=== PATIENT | male | born 1940 | race Caucasian/White ===

== ENCOUNTER 2018-08-07 09:41 | Inpatient (IN) | payer OTHER ==
[~2018-08-07] VITALS: Ht 175.3 cm; Wt 90.3 kg
[2018-08-07] VITALS (7 sets, daily range): BP systolic 105–135; BP diastolic 49–62
[~2018-08-07 09:41] MED LIST: 8 HOUR650 MG PO; APAP650 PO; ASPIR 8181 MG PO; BACTRIM DS TAB1 EACH PO; COLACE100 MG PO; DILANTIN100 MG PO; FISH OIL 1,001000 M2 PO; HYDROCODONE-APA1 TA1 PO; LEXAPRO 10 MG T10 M1 PO; MOBIC15 MG PO; NORCO 5-325 TA1 EACH PO; PRED FORTE 1% EY5 M1 OPHTHALMIC; PREDNISONE 1 MG1 M1 OPHTHALMIC; VOLTAREN GEL 1100 G2 TOP; XARELTO10 MG PO; ZOCOR20 MG PO
[2018-08-07 09:58] LABS: ABSOLUTE NEUTROPHILS 7.8 thou/uL (1.4-8.2); BASOPHILS 0.4 % (0.0-2.0); EOSINOPHILS 3.1 % (0.0-3.0); HEMATOCRIT 45.7 % (42.0-52.0); HEMOGLOBIN 14.9 gm/dL (14.0-18.0); MCH 31.2 pg (26.0-34.0); MCHC 32.6 g/dL (28.0-37.0); MCV 95.8 fL (80.0-100.0); MONOCYTES 5.6 % (1.0-8.0); PLATELET COUNT 299 thou/uL (150-400); POLYS 79.9 % (36.0-66.0); RBC 4.77 mil/uL (4.50-6.00); RDW 13.6 % (10.5-14.5); WBC 9.8 thou/uL (4.0-11.0)
[2018-08-07 10:06] LABS: ANION GAP 12 mmol/L (7-16); BUN 10 mg/dL (7-18); CALCIUM 9.6 mg/dL (8.5-10.1); CHLORIDE 99 mmol/L (98-107); CO2 27 mmol/L (21-32); GLUCOSE 163 mg/dL (74-106); SODIUM 138 mmol/L (136-145)
[2018-08-07 10:14] LABS: ALBUMIN 3.5 g/dL (3.4-5.0); SGOT 42 U/L (15-37); SGPT 23 U/L (30-65); TOTAL BILIRUBIN 0.4 mg/dL (<0.1-1.0); TOTAL PROTEIN 8.8 g/dL (6.4-8.2); TROPONIN-I <0.06 ng/mL (<0.06)
[2018-08-07] MEDS ORDERED: IBUPROFEN 200200 M1 PO (10:59)
[2018-08-07] MEDS ORDERED: TOPROL XL25 MG PO (10:59)
[2018-08-07] MEDS ORDERED: LIPITOR 20 MG T20 M1 PO (10:59)
--- NOTE | 2018-08-07 13:06 | EKG ---
[address] [address] ELECTROCARDIOGRAM REPORT Name: LISA OSWALD Room #: 170-17 ADM IN .R.#: [id number] ������������������ Admission: 08/07/18 ������������������ Attend Phys: Slade Alberto MD Discharge: ������������������ Date of : 36 Report #: [id number] ����������������������������������������������������������������� [id number] THIS REPORT FOR: //name// [facility] ED Test Date: 2018-08-07 Test Time: 09:47:36 Pat Name: LISA SHEAGLENNSANDIE Department: Room: [facility] Gender: M Food Beverage Supervisor: TATIANNA[]] : 1940 Requested By: Jamila Alanis Order Number: [id number] MD: Flavio Richard Measurements Intervals [place] Rate: 84 P: 76 [place]: 158 QRS: 60 QRSD: 97 T: -48 QT: 310 QTc: 367 Interpretive Statements Sinus rhythm Ventricular premature complex left atrial enlargement Nonspecific ST-T wave abnormalities Compared to ECG 04/26/2015 16:11:49 Ventricular premature complex(es) now present Electronically Signed On 08-07-2018 13:06:08 CREDIT RISK MODELER by Flavio Richard [email or web address] ��������������������������������������������� <ELECTRONICALLY SIGNED> ���������������������������������������� By: Flavio Richard MD ��������������������������������������������� 08/07/18 1306 0947 0947 Flavio Richard MD /EPI
--- NOTE | 2018-08-07 15:33 | 2DMMODE ---
[facility] [place] [address] 2 D/M-MODE ECHOCARDIOGRAM Name: DAREKLISA S Room #: 250-P ADM IN M.R.#: [id number] ������������� Admission: 08/07/18 ������������� Attend Phys: Slade Alberto, Discharge: ��� ������������� ��� Date of : 36 Date of Service: 08/07/18 1533 �� Report #: [id number] �������� ��������������������������������������������[id number] THIS REPORT FOR: //name// APPROVED REPORT Study performed: 08/07/2018 14:26:21 EXAM: Comprehensive 2D, Doppler, and color-flow Echocardiogram Patient Location: ICU Room #: 250 Status: routine BSA: 2.04 HR: 83 bpm BP: 130/62 mmHg Rhythm: NSR Other Information Study Quality: Adequate/low window. Technically limited study due to COPD, coughing. Indications Dyspnea, elevated BNP. Hx: CABG. COPD, HTN, HLP. 2D Dimensions IVSd: 10.30 (7-11mm) LVOT Diam: 20.84 (18-24mm) LVDd: 50.33 mm PWd: 10.01 (7-11mm) LVDs: 32.11 (25-40mm) Aortic Root: 35.44 mm Volumes Left Atrial Volume (Systole) Single Plane 4CH: 62.76 mL Single Plane 2CH: 61.02 mL LA ESV Index: 34.00 mL/m2 Aortic Valve AoV Peak Ruben.: 1.96 m/s AO Peak Gr.: 15.35 mmHg LVOT Max P.56 mmHg AO Mean Gr.: 8.44 mmHg AO V2 Mean: 1.38 m/s LVOT Max V: 1.18 m/s AO V2 VTI: 37.78 cm JACKSON Vmax: 2.05 cm2 Mitral Valve [facility] [address] [place] [address] 2 D/M-MODE ECHOCARDIOGRAM Name: LISA OSWALD Room #: [facility] IN .R.#: [id number] ������������� Admission: 08/07/18 ������������� Attend Phys: Slade Alberto, Discharge: ��� ������������� ��� Date of : 36 Date of Service: 08/07/18 1533 �� Report #: [id number] �������� ��������������������������������������������[id number] E/A Ratio: 1.3 MV Decel. Time: 231.89 ms MV E Max Ruben.: 1.20 m/s MV A Ruben.: 0.96 m/s MV PHT: 67.25 ms IVRT: 51.90 ms Pulmonary Valve PV Peak Ruben.: 0.77 m/s PV Peak Gr.: 2.36 mmHg Pulmonary Vein P Vein S: 0.71 m/s P Vein D: 0.58 m/s P Vein S/D Ratio: 1.22 Tricuspid Valve TR Peak Ruben.: 2.97 m/s RAP Estimate: 10.00 mmHg TR Peak Gr.: 35.35 mmHg PA Pressure: 45.00 mmHg Left Ventricle The left ventricle is normal size. Hypokinesis of the mid to basal inferior wall. There is normal left ventricular wall thickness. Left ventricular systolic function is normal. LVEF is 55-60%. Moderate diastolic dysfunction is present (pseudonormal filling). Right Ventricle Right ventricle is not well visualized. Atria Left atrium is at the upper limits of normal. Right atrium is mildly dilated. Aortic Valve The Aortic valve is sclerotic. No aortic regurgitation is present. There is no aortic valvular stenosis. Mitral Valve The mitral valve is normal in structure. There is mitral annular calcification. Moderate mitral regurgitation Tricuspid Valve The tricuspid valve is normal in structure. Moderate tricuspid regurgitation. Estimated PAP is 45mmHg. Pulmonic Valve [address] [address] 2 D/M-MODE ECHOCARDIOGRAM Name: KHRIS OSWALDH Kayla Room #: 250-P [facility]#: [id number] ������������� Admission: 08/07/18 ������������� Attend Phys: Slade Alberto, Discharge: ��� ������������� ��� Date of : 36 Date of Service: 08/07/18 1533 �� Report #: [id number] �������� ��������������������������������������������[id number] Pulmonic valve is not well visualized. Great Vessels The aortic root is normal in size. Ascending aorta is not well visualized. IVC is dilated and collapses >50% with inspiration. Pericardium There is no pericardial effusion. <Conclusion> The left ventricle is normal size. Left ventricular systolic function is normal. Hypokinesis of the mid to basal inferior wall. Moderate diastolic dysfunction is present (pseudonormal filling). Right ventricle is not well visualized. Left atrium is at the upper limits of normal. Right atrium is mildly dilated. The Aortic valve is sclerotic. There is mitral annular calcification. Moderate mitral regurgitation Moderate tricuspid regurgitation. Estimated PAP is 45mmHg. ��������������������������������������������� <ELECTRONICALLY SIGNED> ���������������������������������������� By: Mitch Wyatt MD ��������������������������������������������� 08/07/18 1533 1533 1533 Mitch Wyatt MD /INF
[2018-08-08 02:06] LABS: GLYCOHEMOGLOBIN (HGB A1C) 5.7 % (4.8-5.6)
--- NOTE | 2018-08-08 04:54 | NUR ---
PT IS IMPROVING WITH STERIODS AND PRN BREATHING TX. PT IS ON 2L 02 AND IS GOOD SATURATION. ASSESSMENT CHARTED. MS OVERFLOW STATUS. CALL LIGHT IN REACH. CONTINUE WITH PLAN OF CARE.
[2018-08-08 05:07] VITALS: BP 121/37
[2018-08-08 05:13] LABS: ABSOLUTE NEUTROPHILS 10.2 thou/uL (1.4-8.2); BASOPHILS 0.3 % (0.0-2.0); EOSINOPHILS 0.8 % (0.0-3.0); HEMATOCRIT 38.2 % (42.0-52.0); LYMPHOCYTES 8.7 % (24.0-44.0); MCH 31.5 pg (26.0-34.0); MCHC 33.6 g/dL (28.0-37.0); MCV 93.8 fL (80.0-100.0); PLATELET COUNT 271 thou/uL (150-400); POLYS 85.2 % (36.0-66.0); RBC 4.07 mil/uL (4.50-6.00); RDW 13.6 % (10.5-14.5)
[2018-08-08 05:19] LABS: HEMOGLOBIN 12.8 gm/dL (14.0-18.0)
[2018-08-08 05:26] LABS: CALCIUM 8.7 mg/dL (8.5-10.1); CREATININE 0.9 mg/dL (0.7-1.3); MAGNESIUM 2.2 mg/dL (1.8-2.4); POTASSIUM 4.6 mmol/L (3.5-5.1)
[2018-08-08 08:00] VITALS: BP 101/51
--- NOTE | 2018-08-08 12:58 | NUR ---
INITIAL ASSESSMENT: SW reviewed chart and spoke with nursing and attending physician. Pt was admitted from home due to pneumonia. Pt has been on 2L O2. SW met with pt at bedside. Introduced role of SW. Pt is alert/orienated x 4. Pt reports he lives at home with his . Prior to admission, pt was independent with ADLs. Pt uses a cane to assist with ambulation. No hx of HH services or SNF/Rehab placement. Pt states that his has used [facility] in the past for HH, and he would be agreeable with using [facility] if needed. Pt's PCP is Dr. Puma Dodge. Pt states he wants to establish care with pulmonology and cardiology at [facility]. SW to provide pt with provider booklet. Awaiting therapy evals at this time. SW notified intake at [facility] of possible new HH referral. SW is following to assist as needed with discharge planning.
[2018-08-08 16:00] VITALS: BP 110/62
--- NOTE | 2018-08-08 18:44 | NUR ---
patient remains A&O x 4, pleasant and cooperative with cares. C/O PAIN THROUGHOUT THE DAY, WITH LITTLE HELP FROM NARCODICS. PATIENT HAS CHRONIC PAIN. UP TO CHAIR FOR APPROX 2 HOURS THIS SHIFT, PATIENT IS ABLE TO TRANSFER TO WHEELCHAIR FROM BED AND BED TO WHEELCHAIR WITH MOD ASSISTANCE. DRESSING TO BACK AND SACRAL WOUNDS WERE CHANGED TODAY BY WOUND NURSE THIS SHIFT. PATIENT HAS ADEQUATE OUTPUT WITH GOOD ORAL INTAKE. SUPRAPUBIC CATH CONTINUES TO LEAK AT THIS POINT, PATIENT KEEPS IT CLEAN. NO OTHER CONCERNS AT THIS TIME. WILL CONTINUE TO MONITOR AND CARE PER PLAN OF CARE.
--- NOTE | 2018-08-08 18:50 | NUR ---
UNEVENTFUL DAY, PATIENT BATHED HIMSELF. PATIENT STATES THAT HE FEELS A LOT BETTER. PATIENT TRANSFERRED TO 223. NO OTHER CONCERNS AT THIS TIME. WILL CONTINUE TO MONITOR AND CARE PER PLAN OF CARE.
--- NOTE | 2018-08-08 19:33 | NUR ---
PATIENT TRANSFERRED FROM ICU, UP WITH SBA. ARRIVED AT 1845. ALERT AND ORIENTED X 4. REPORT TAKEN BY [place]/RN. SHE WILL REPORT OFF TO [facility]/RN.
[2018-08-08 20:12] VITALS: BP 121/52
--- NOTE | 2018-08-09 07:23 | NUR ---
PATIENT ALERT AND ORIENTED X4. DENIES PAIN. BREATH SOUNDS DIMINISHED. UP IN ROOM WITH WALKER. SLEPT MOST OF NIGHT.
[2018-08-09 07:45] VITALS: BP 110/53
--- NOTE | 2018-08-09 10:40 | NUR ---
SW reviewed chart and spoke with nursing. Pt was transferred to [facility] ICU and is progressing toward goals for discharge. Plan is for pt to discharge home when medically stable. [facility] is following to assist as needed with discharge planning.
[2018-08-09 11:19] LABS: HEMATOCRIT 40.9 % (42.0-52.0); HEMOGLOBIN 13.6 gm/dL (14.0-18.0); MCH 31.7 pg (26.0-34.0); MCHC 33.2 g/dL (28.0-37.0); MCV 95.6 fL (80.0-100.0); RBC 4.28 mil/uL (4.50-6.00); RDW 13.8 % (10.5-14.5); WBC 10.5 thou/uL (4.0-11.0)
[2018-08-09 11:29] LABS: CALCIUM 8.8 mg/dL (8.5-10.1); MAGNESIUM 2.2 mg/dL (1.8-2.4); POTASSIUM 4.2 mmol/L (3.5-5.1)
[2018-08-09 12:28] VITALS: BP 110/53
[2018-08-09] MEDS ORDERED: AZITHROMYCIN 2250 MG PO (13:38)
[2018-08-09] MEDS ORDERED: PREDNISONE 10 M10 M1 PO (13:38)
[2018-08-09] MEDS ORDERED: CEFPODOXIME PR200 M1 PO (13:38)
[2018-08-09] MEDS ORDERED: MUCINEX600 MG PO (13:38)
[2018-08-09] MEDS ORDERED: MIRALAX17 GM PO (13:38)
[2018-08-09] MEDS ORDERED: VENTOLIN HFA 1818 GM INH (13:38)
[2018-08-09] MEDS ORDERED: PROBIOTIC1 EAC1 PO (13:38)
--- NOTE | 2018-08-09 16:58 | NUR ---
PATIENT CARE WAS ASSUMED AT 0715.PATIENT AND ORIENTED X4.PATIENT HAS NO PAIN AT THIS TIME.IV IS INTACT AND SALINE LOCKED.PATIENT IS ABLE TO AMBULATE WITH STAND BY ASSIST.FALL PRECAUTIONS ARE IN PLACE.CALL LIGHT,PHONE, AND PERSONAL BELONGINGS ARE WITHIN REACH.
--- NOTE | 2018-08-09 17:02 | NUR ---
PATIENT WAS DISCHARGED TO GO HOME WITH HOME HEALTH.IV WAS TAKEN OUT. D/C PAPERWORK WAS GIVEN. PATIENT WAS TAKEN OUT VIA W/C BY TRANSPORTATION TO CAR.PATIENT WAS D/C IN STABLE CONDITION.
[2018-08-12 17:10] LABS: ADENOVIRUS Negative (Negative); INFLUENZA A Negative (Negative); INFLUENZA B Negative (Negative); METAPNEUMOVIRUS Negative (Negative); PARAINFLUENZA 1 Negative (Negative); PARAINFLUENZA 2 Negative (Negative); PARAINFLUENZA 3 Negative (Negative); RHINOVIRUS Negative (Negative); RSV A Negative (Negative); RSV B Negative (Negative)
== END 2018-08-09 17:03 | disposition home health service (06) | DRG 193 ==
LOC: ER 09:41 → ICU 11:04 → EROBS 11:04 → ICU 13:48 → SICU 08-08 18:27 → ENTRNSPT 08-09 16:38 → SICU 08-09 17:03
PROVIDERS: Nurse Practitioner; Student in an Organized Health Care Education/Training Program; ADMIT Internal Medicine
DX: J18.9 Pneumonia, unspecified organism (principal); J96.01 Acute respiratory failure with hypoxia; J44.0 Chronic obstructive pulmonary disease with (acute) lower respiratory infection; G40.909 Epilepsy, unspecified, not intractable, without status epilepticus; F32.9 Major depressive disorder, single episode, unspecified; F41.9 Anxiety disorder, unspecified; Z96.642 Presence of left artificial hip joint; Z96.651 Presence of right artificial knee joint; E78.5 Hyperlipidemia, unspecified; Z87.891 Personal history of nicotine dependence; Z90.49 Acquired absence of other specified parts of digestive tract; Z98.42 Cataract extraction status, left eye; Z98.41 Cataract extraction status, right eye; Z79.82 Long term (current) use of aspirin; Z79.899 Other long term (current) drug therapy
CPT/HCPCS: 10196; 15002

== ENCOUNTER 2018-08-26 16:27 | Inpatient (IN) | payer OTHER ==
[~2018-08-26] VITALS: Ht 175.3 cm; Wt 90.0 kg
[2018-08-26 16:27] VITALS: BP 130/55
[~2018-08-26 16:27] MED LIST changes: +AZITHROMYCIN 2250 MG PO; +CEFPODOXIME PR200 M1 PO; +IBUPROFEN 200200 M1 PO; +LIPITOR 20 MG T20 M1 PO; +MIRALAX17 GM PO; +MUCINEX600 MG PO; +PREDNISONE 10 M10 M1 PO; +PROBIOTIC1 EAC1 PO; +TOPROL XL25 MG PO; +VENTOLIN HFA 1818 GM INH
[2018-08-26] MEDS ORDERED: LEVAQUIN 500 M500 M2 PO (16:33)
[2018-08-26 16:48] LABS: ABSOLUTE NEUTROPHILS 4.9 thou/uL (1.4-8.2); BASOPHILS 0.5 % (0.0-2.0); EOSINOPHILS 12.8 % (0.0-3.0); HEMATOCRIT 40.3 % (42.0-52.0); HEMOGLOBIN 13.8 gm/dL (14.0-18.0); MCH 32.4 pg (26.0-34.0); MCHC 34.3 g/dL (28.0-37.0); MCV 94.3 fL (80.0-100.0); MONOCYTES 8.5 % (1.0-8.0); PLATELET COUNT 132 thou/uL (150-400); POLYS 65.2 % (36.0-66.0); RBC 4.27 mil/uL (4.50-6.00); RDW 14.4 % (10.5-14.5); WBC 7.6 thou/uL (4.0-11.0)
[2018-08-26 16:56] LABS: ANION GAP 7 mmol/L (7-16); BUN 12 mg/dL (7-18); CALCIUM 8.7 mg/dL (8.5-10.1); CHLORIDE 103 mmol/L (98-107); CO2 30 mmol/L (21-32); GLUCOSE 105 mg/dL (74-106); POTASSIUM 3.9 mmol/L (3.5-5.1); SODIUM 140 mmol/L (136-145)
[2018-08-26 17:04] LABS: TROPONIN-I <0.06 ng/mL (<0.06)
--- NOTE | 2018-08-26 17:16 | EKG ---
[place] [address] [facility] [place] [address] ELECTROCARDIOGRAM REPORT Name: SHABBIRRYLEYLISA Garza Room #: [facility]#: [id number] ������������������ Admission: 08/26/18 ������������������ Attend Phys: Discharge: ������������������ Date of : 36 Report #: [id number] ����������������������������������������������������������������� [id number] THIS REPORT FOR: //name// [facility] ED Test Date: 2018-08-26 Test Time: 16:50:29 Pat Name: LISA OSWALD Department: Room: Gender: M Office Clerk Routine: TATIANNA : 1940 Requested By: Jon Blake Order Number: [id number] MD: Hermes Hutchinson Measurements Intervals [place] Rate: 78 P: 81 MS: 151 QRS: 73 QRSD: 96 T: -39 QT: 360 QTc: 411 Interpretive Statements Sinus rhythm Nonspecific ST and T wave abnormality Compared to ECG 08/07/2018 09:47:36 Ventricular premature complex(es) no longer present Electronically Signed On 08-26-2018 17:16:31 CDT by Hermes Hutchinson [email or web address] ��������������������������������������������� <ELECTRONICALLY SIGNED> ���������������������������������������� By: Hermes Hutchinson MD, [facility] ��������������������������������������������� 08/26/18 1716 49 49 Hermes Hutchinson MD, FAC /EPI
[2018-08-26 18:01] VITALS: BP 150/73
[2018-08-26 19:48] VITALS: BP 119/53
[2018-08-26 22:01] VITALS: BP 146/91
[2018-08-27 04:12] VITALS: BP 117/52
--- NOTE | 2018-08-27 05:44 | NUR ---
Pt came up to unit approx 2029. Alert and oriented x4. Pt complaints of coughing a lot which is bothering him. Throal lozenges ordered. Admission completed. Pt ambulates with cane. No c/o pain. Call light within reach. Will continue to monitor.
[2018-08-27 08:23] VITALS: BP 134/55
[2018-08-27 09:00] VITALS: BP 134/55
[2018-08-27 12:36] VITALS: BP 126/55
--- NOTE | 2018-08-27 13:37 | NUR ---
ASSUMED CARE AT 0700, SHIFT ASSESSMENT DONE, MEDS GIVEN, VSS. DENIES ANY PAIN, NAUSEA, VOMITING. ON 1L NC. TOLEARING DIET. WHEEZING PRESENT ON AUSCULATAITON. WALKED AROUND THE UNIT AFTER LUNCH. SATURAITON WAS 92% AFTER WALKING. ORDER RECEIVED TO TRANSFER TO [facility]. REPORT GIVEN TO NURSE VILLAVICENCIO. WILL BE TRANFERRING SHORTLY TO ROOM 220
--- NOTE | 2018-08-27 14:13 | NUR ---
PATIENT WAS ADMITTED ON 06/28/18 WITH SOA, HE IS ALERT AND ORIENTED X4. HE HAS ADEQUATE NUTRITION. RT HELPED PATIENT WITH ALBUTEROL TREATMENT AT 0700 AND 1100, PATIENT BREATHS BETTER AFTER THE TREATMENT. PATIENT WALKED AROUND THE HALLWAY AND TOLLERATED WELL. O2 SAT WAS 92 WITH ROOM AIR WHILE WALKING AND HR WAS 115. PATIENT IS TRANSFERRED TO [facility].
--- NOTE | 2018-08-27 14:14 | NUR ---
PT ADMITTED RELATED TO COPD EXACEBATION. CM REVIEWED CHART AND SPOKE WITH CARE TEAM. CM MET WITH PT AT BEDSIDE THIS DAY ON 4E PRIOR TO TRANSFER TO RM 220. PT IS A&O X4. CM ROLE INTRODUCED. PT INDICATED HE LIVES IN A HOUSE WITH HIS SPOUSE WITH 2 STEPS TO ENTER AND NO STEPS INSIDE. PT INDICATED HE HAD USED A CANE TO ASSIST WITH MOBILITY ACADEMIC SUPPORT SPECIALIST AND THAT HE ALSO HAS A FWW IF HE FEELS HE NEEDS IT. PT INDICATED NO HOME O2 OR NEBULIZER AT HOME. PT IS CURRENTLY ON 1 L OF O2. PT IS CURRENTLY ON SERVICE WITH [facility] HH AND WOULD LIKE TO RESUME SERVICES UPON [facility]. CM NOTIFIED [facility]. CM TO FOLLOW INDICATED WITH DC PLANNING.
--- NOTE | 2018-08-27 14:19 | NUR ---
RECEIVED PT TO FLOOR IN W/C W/CANE ACCOMPANIED BY VOLUNTEER, PT AMB TO BED, SLIGHTLY UNSTEADY W/CANE AND CLOSE SBA. A&0X4, BED PADDED FOR SEIZURE HX. IV FLUSHES, PT STATES HE'S HAPPY TO BE DOWN HERE HE'S BEEN HERE BEFORE AND ENJOYS HOW QUIET IT IS. RE-INTRO'D CALL LIGHT USE AND GOT HIM REFRESHMENT AND A BOOK. LAST BM WAS YESTERDAY YET WHEN I REVIEWED MEDS HE ASKED FOR POLY TO CONTINUE BEING REGULAR; OBLIGED. HAS URINALS AT BEDSIDE
--- NOTE | 2018-08-27 14:19 | NUR ---
I have reviewed and concur with student documentation.
[2018-08-27 14:30] VITALS: BP 130/66
--- NOTE | 2018-08-27 16:54 | NUR ---
CM REQUEST: NEXT TIME CM COMES BY PT HAS QUESTIONS ABOUT HIS RETURN HOME AND NEEDS INFO/RESOURCES RE: SPOUSE. WILL PASS ON IN REPORT AND FIND AN EMAIL FOR CM WORKING DOWN HERE IN SICU
[2018-08-27 18:50] VITALS: BP 114/45
--- NOTE | 2018-08-28 06:49 | NUR ---
PATIENT ALERT AND ORIENTED X4. DENIES PAIN. C/O COUGH, MED GIVEN X2. SOME EDUCATION ON COPD GIVEN WELL SOME PRINTED MATERIAL. SLEPT LITTLE THIS SHIFT.
[2018-08-28 08:14] VITALS: BP 131/62
--- NOTE | 2018-08-28 08:17 | NUR ---
ASSUMED PT CARE AT 0700. ASSESSMENT COMPLETED AND IS CHARTED. VSS. PT IS AWAKE, ALERT/ORIENTED X4. DENIES SHORTNESS OF BREATH AT THIS TIME. REPORTS NON-PRODUCTIVE COUGH. O2 IS 93% ON ROOM AIR. EXERCISE OXIMETRY TO BE DONE TODAY. LUNGS ARE CLEAR TO AUSCULTATION. WILL CONTINUE WITH CURRENT CARE.
[2018-08-28] MEDS ORDERED: PREDNISONE 10 M10 MG PO (12:41)
[2018-08-28 12:52] VITALS: BP 131/62
--- NOTE | 2018-08-28 14:30 | NUR ---
DISCHARGE NOTE: SW reviewed chart and spoke with nursing and attending physician. Pt was transferred to [facility] from and is medically stable for discharge home today. SW met with pt at bedside to discuss discharge plan. Pt requested info regarding in-home care. SW provided pt with [facility] for information regarding house cleaning services. Pt asked about how to get his convinced to go to the doctor. Pt states that she is not motivated to go to the doctor. SW recommended he discuss with her PCP for possible HH service to check on pt's leg wound. Pt's normally sees Dr. Benton at [facility] and Dr. Dodge. Pt verbalized understanding and will discuss with PCP when he follows up with him. Pt's family will provide transportation home. No additional SW needs identified at this time, but is available to assist should needs arise.
--- NOTE | 2018-08-28 15:34 | NUR ---
DISCHARGE INSTRUCTIONS GIVEN TO PT. IV REMOVED. DISCHARGED IN STABLE CONDITION VIA WHEELCHAIR AND VOLUNTEER SERVICES TO HOME.
== END 2018-08-28 15:35 | disposition home or self-care (01) | DRG 189 ==
LOC: ER 16:27 → 4E 18:23 → SICU 18:23 → EROBS 18:23 → 4E 19:49 → ENTRNSPT 08-27 13:45 → EDTRNSPTSTS 08-27 13:49 → SICU 08-27 14:04
PROVIDERS: Emergency Medicine; ADMIT Family Medicine
DX: J96.01 Acute respiratory failure with hypoxia (principal); J44.1 Chronic obstructive pulmonary disease with (acute) exacerbation; F32.9 Major depressive disorder, single episode, unspecified; F41.9 Anxiety disorder, unspecified; E78.00 Pure hypercholesterolemia, unspecified; Z96.642 Presence of left artificial hip joint; Z96.651 Presence of right artificial knee joint; G40.909 Epilepsy, unspecified, not intractable, without status epilepticus; I10 Essential (primary) hypertension; Z90.49 Acquired absence of other specified parts of digestive tract; Z98.42 Cataract extraction status, left eye; Z98.41 Cataract extraction status, right eye; Z87.891 Personal history of nicotine dependence
CPT/HCPCS: 10084; 15002

== ENCOUNTER 2018-09-26 14:06 | Inpatient (IN) | payer OTHER ==
[~2018-09-26] VITALS: Ht 175.3 cm; Wt 90.7 kg
[~2018-09-26 14:06] MED LIST changes: +LEVAQUIN 500 M500 M2 PO; +PREDNISONE 10 M10 MG PO
[2018-09-26 14:07] VITALS: BP 119/74
[2018-09-26] MEDS ORDERED: TOPROL XL25 MG PO (14:18)
[2018-09-26] MEDS ORDERED: STIOLTO RESPIMAT4 GM INH (14:19)
[2018-09-26 14:37] LABS: BE(vivo) -1.2 mmol/L (-2 to +3); HCO3 23.8 mmol/L (22.0-26.0); PCO2 40.8 mmHg (35.0-45.0); PO2 68.5 mmHg (80.0-100.0); pH 7.383 (7.360-7.450); sO2 93.5 % (92.0-98.0)
[2018-09-26 14:41] LABS: HEMATOCRIT 42.2 % (42.0-52.0); HEMOGLOBIN 14.2 gm/dL (14.0-18.0); MCH 31.8 pg (26.0-34.0); MCHC 33.6 g/dL (28.0-37.0); MCV 94.9 fL (80.0-100.0); RBC 4.45 mil/uL (4.50-6.00); RDW 14.6 % (10.5-14.5)
[2018-09-26 14:49] LABS: ANION GAP 12 mmol/L (7-16); BUN 18 mg/dL (7-18); CALCIUM 8.6 mg/dL (8.5-10.1); CHLORIDE 103 mmol/L (98-107); CO2 25 mmol/L (21-32); CREATININE 0.9 mg/dL (0.7-1.3); GLUCOSE 111 mg/dL (74-106); POTASSIUM 4.2 mmol/L (3.5-5.1); SODIUM 140 mmol/L (136-145)
[2018-09-26 14:59] LABS: TROPONIN-I <0.06 ng/mL (<0.06)
[2018-09-26 15:39] VITALS: BP 114/59
[2018-09-26 15:50] VITALS: BP 118/48
[2018-09-26 16:00] VITALS: BP 135/93
--- NOTE | 2018-09-26 17:46 | NUR ---
78 YO MALE ADMITTED FROM ER TO 422. A&OX4 AMBULATES SELF IN ROOM. IV INTACT IN L HAND INFUSING ZOYSN FROM ER. FIRST DOSE OF IV SOLUMEDROL GIVEN IN ER, NEXT DOSE DUE AT 2100. VANCO AND LEVOQUIN THAT WAS BROUGHT FROM ER HAVE BEEN GIVEN. PT ORIENTED TO ROOM/CALL LIGHT.
[2018-09-26 20:10] VITALS: BP 103/43
--- NOTE | 2018-09-27 01:46 | NUR ---
ASSUMED CARE AT 1900, ASSESSMENT COMPLETED. PT C/O FEELING JITTERY AND HAVING A PROMINENT TREMOR AFTER RECEIVING IV SOLUMEDROL; ALSO ASKED ABOUT SOME OF HIS HOME MEDS, INCLUDING DILANTIN. TALKED WITH DR. PARRY, RECEIVED ORDERS TO RESUME MEDS, DECREASE SOLUMEDROL DOSE, AND ADD PRN ATIVAN FOR AGITATION. PT REPORTS DRY COUGH, LUNGS MILDLY WHEEZY R>L, DIMINISHED LUNG SOUNDS ON THE LEFT. DENIES PAIN OR NAUSEA. IV ABX INFUSING OVERNIGHT. GIVEN SNACK AT HS. PT CALLS APPROPRIATELY FOR NEEDS, IS UP AD JETT IN ROOM AND STEADY ON FEET. NO OTHER CONCERNS, WILL CONTINUE TO MONITOR.
[2018-09-27 04:45] VITALS: BP 108/50
[2018-09-27 07:20] VITALS: BP 110/52
--- NOTE | 2018-09-27 08:23 | EKG ---
[address] [address] ELECTROCARDIOGRAM REPORT Name: LISA OSWALD Room #: 422-P [facility] IN ..#: [id number] ������������������ Admission: 09/26/18 ������������������ Attend Phys: Puma Dodge MD Discharge: ������������������ Date of : 38 Report #: [id number] ����������������������������������������������������������������� [id number] THIS REPORT FOR: //name// [facility] ED Test Date: 2018-09-26 Test Time: 14:52:13 Pat Name: LISA SHEAGLENNSANDIE Department: Room: [facility] Gender: M Fire Adjuster: LINDA : 1940 Requested By: Jon Blake Order Number: [id number] MD: Dario Strauss Measurements Intervals [place] Rate: 75 P: 83 MS: 151 QRS: 70 QRSD: 96 T: 44 QT: 471 QTc: 527 Interpretive Statements Sinus rhythm Ventricular premature complex Left atrial enlargement Borderline repolarization abnormality Compared to ECG 08/26/2018 16:50:29 Ventricular premature complex(es) now present Atrial abnormality now present Prolonged QT interval now present ST (T wave) deviation no longer present Electronically Signed On 09-27-2018 8:22:49 CDT by Dario Strauss [email or web address] ��������������������������������������������� <ELECTRONICALLY SIGNED> ���������������������������������������� By: Dario Strauss MD ��������������������������������������������� 09/27/18 0822 145 [id number] Dario Strauss MD /EPI
--- NOTE | 2018-09-27 12:19 | NUR ---
ASSESSMENT-PT LIVES IN A HOUSE WITH HIS WHO IS 12 YRS YOUNGER THAN HE BUT HAS A SORE ON HER LEG AND NEEDS TO FOLLOW-UP WITH HER DR PER PT. PT HAS A CANE OR WALKER TO GET AROUND AND DOES HIS OWN ADLS. LAUNDRY IS LOCATED DOWN 8 STEPS WITH 2 RAILS AND HE USUALLY DOES THE LAUNDRY. HE DRIVES. HE HAS HAD [facility] IN THE PAST. PT ASKING ABOUT GETTING A TONE REGULATOR. HE HAS SR BLUE BOOK AND OFFERED HIM SOME SUGGESTIONS ON COMPANIES TO CALL. PT SAYS THEY COULD USE SOME HELP WITH THE LAUNDRY. FOLLOWING TO ASSIST WITH DC PLANNING.
--- NOTE | 2018-09-27 12:29 | NUR ---
ASSUMED CARE OF PT AT 0700. ASSESSMENT CHARTED. A&O,X4. DENIES PAIN AND SOA. ROOM AIR. LUNG SOUNDS RIGHT WHEEZES AND LEFT CLEAR/DIM. SCHEDULED BREATHING TX. IV ABX GIVEN ORDERED. C/O SORE THROAT, LOZENGE GIVEN ORDERED. REGULAR HEART SOUNDS. ACTIVE BOWEL SOUNDS. UP AD JETT. REPORTING BILATERAL HANDS SHAKING/ TREMORS NOTED, ANTIANXIETY MEDS GIVEN ORDERED. PT TRANSFERED TO ROOM 220 VIA WHEELCHAIR IN STABLE CONDITION AT 12:32. BELONGINGS SENT WITH PT.
[2018-09-27 12:55] VITALS: BP 112/65
--- NOTE | 2018-09-27 18:26 | NUR ---
PATIENT TRANSFERRED FROM 422 TO SICU 220, PATIENT A&OX4, DENIES PAIN OR DISCOMFORT, LEFT HAND IV NEEDS TO BE REINFORCED, FLUSH BAG AND IV ZOSYN SENT WITH PATIENT, UP AD JETT, INDEPENDENTLY AMBULATES WITH STEADY GAIT, PATIENT MADE COMFORTABLE, ORIENTED TO STAFF AND UNIT
[2018-09-27 18:46] VITALS: BP 122/61
--- NOTE | 2018-09-28 05:08 | NUR ---
ASSUMED CARE OF PATIENT AT 1900. VSS. ASSESSMENT COMPLETED AT 2140 AND IS DOCUMENTED. LEFT FA IV PATENT AND SALINE LOCKED. IV ABT INFUSED WITHOUT COMPLICATION. PT UP AD JETT TO BATHROOM SEVERAL TIMES THROUGHOUT THE NIGHT. HS BLOOD SUGAR: 126, NO COVERAGE INSULIN NEEDED. PT CURRENTLY SLEEPING SOUNDLY IN BED IN NO ACUTE DISTRESS. CALL LIGHT WITHIN REACH. BED LOCKED AND IN LOWEST POSITION. WCTM.
[2018-09-28 06:32] LABS: HEMATOCRIT 38.7 % (42.0-52.0); MCH 32.2 pg (26.0-34.0); MCHC 33.5 g/dL (28.0-37.0); RBC 4.03 mil/uL (4.50-6.00); RDW 14.8 % (10.5-14.5); WBC 7.2 thou/uL (4.0-11.0)
[2018-09-28 06:44] LABS: CALCIUM 8.9 mg/dL (8.5-10.1); CREATININE 1.2 mg/dL (0.7-1.3); POTASSIUM 4.3 mmol/L (3.5-5.1)
[2018-09-28 07:24] VITALS: BP 125/65
--- NOTE | 2018-09-28 10:24 | NUR ---
ASSUMED CARE OF PATIENT THIS MORNING. PATIENT IS A&OX4. HE IS UP AD JETT. PATIENT DOES NOT COMPLAIN OF ANY PAIN. TOLERATED MORNING MEDS. HE ATE HIS BREAKFAST A LITTLE TOO FAST AND FELT LIKE IT WAS STUCK IN HIS THROAT, HE WAS ABLE TO COUGH AND THEN COUGH UP DISLODGED CONTENTS. BLOOD SUGAR WAS TAKEN TODAY 128, NO INSULIN WAS GIVEN. HE DOES HAVE HAD TREMORS. PATIENT WANTS TO GO HOME TODAY, NO PHYSICIAN HAS BEEN AROUND TO SEE PATIENT OF YET. HE IS CURRENTLY LYING IN BED WITH THE CALL LIGHT WITHIN REACH.
[2018-09-28] MEDS ORDERED: DOXYCYCLINE 10100 MG PO (12:08)
[2018-09-28] MEDS ORDERED: PREDNISONE 10 M10 MG PO (12:08)
[2018-09-28 13:32] VITALS: BP 125/65
--- NOTE | 2018-09-28 16:06 | NUR ---
PATIENT DISCHARGED HOME WITH SELF CARE. TWO PRESCRIPTIONS WERE CALLED INTO HIS LOCAL [facility]. IV DC'D. DISCHARGE INSTRUCTIONS WERE REVIEWED WITH THE PATIENT AND HE SIGNED IN AGREEMENT. HE WAS TAKEN TO [facility] FOR [facility]PART[facility].
--- NOTE | 2018-09-28 17:21 | HC ---
[facility] [place] [address] CONSULTATION Name: LISA OSWALD Room #: 220-P [facility] IN M.R.#: [id number] Admission: 09/26/18 ������������������ Attend Phys: Puma Dodge MD Discharge: 09/28/18 ������������������ Date of : 38 Report #: [id number] THIS REPORT FOR: //name// CC: Puma Dodge REFERRING PHYSICIAN: Dr. Puma Dodge. REASON FOR REFERRAL: Dyspnea. HISTORY OF PRESENT ILLNESS: The patient is an 78-year-old white male who presents to the Emergency Room with progressive dyspnea. A pulmonary consultation was requested. The patient has a history of COPD. He was just seen in the Emergency Room in August and again in July of 2017. The patient states that he was last hospitalized 2 weeks ago. He was doing fairly well until the 1 day prior to presentation, the patient started again to develop increasing dyspnea. Otherwise, denies any chest pain, sore throat, night sweats, fever or chills. PAST MEDICAL HISTORY: Notable for COPD; history of tobacco use, he quit smoking few years ago; history of seizure disorder; depression/anxiety disorder; hypercholesterolemia; and hypertension. PAST SURGICAL HISTORY: Include trigger finger release surgery, cholecystectomy, repair of the bilateral detached retina, bilateral cataract surgery, tonsillectomy, adenoidectomy, left hip replacement, right total knee replacement. ALLERGIES: None to medications. HOME MEDICATIONS: Include Dilantin, Lipitor, Advil, Toprol, Stiolto Lexapro, Dilantin, aspirin. FAMILY HISTORY: Noncontributory. SOCIAL HISTORY: He smoked in the past, but quit few years ago. Denies any alcohol use. REVIEW OF SYSTEMS: As mentioned above, otherwise 10-point system review negative. PHYSICAL EXAMINATION: GENERAL: He is awake, alert, in no distress. [facility] [address] [place] [address] CONSULTATION Name: LISA OSWALD Room #: 220-P [facility] IN [facility]#: [id number] Admission: 09/26/18 ������������������ Attend Phys: Puma Dodge MD Discharge: 09/28/18 ������������������ Date of : 38 Report #: [id number] VITAL SIGNS: Temperature is 98.1 degrees Fahrenheit, pulse is 86, respiratory rate is 20, blood pressure 108/50 mmHg, saturation 94%. HEENT: Normocephalic, atraumatic. NECK: Supple, without lymphadenopathy or thyromegaly. CHEST: Breath sounds are fair with mild expiratory wheezes. No crackles. CARDIOVASCULAR: Normal S1, S2. No murmurs or gallop. There is no JVD, no carotid bruit. Pulses are 2+/4+ bilaterally. ABDOMEN: Soft, nontender, no organomegaly or masses felt. GENITOURINARY: Deferred. RECTAL: Deferred. EXTREMITIES: There is no edema, cyanosis or clubbing. LABORATORY DATA: Chest x-ray is clear, there is calcified granuloma seen in the left hilum. Procalcitonin level is normal. EKG shows sinus rhythm, no acute ischemic changes noted. Electrolytes are normal. WBC 8000, hemoglobin 14.2, platelets are normal. Arterial blood gas revealed pH 7.3, pCO2 40, pO2 68 on room air. IMPRESSION: 1. Progressive dyspnea in this 78-year-old white male with history of chronic obstructive pulmonary disease. Exacerbation of chronic obstructive pulmonary disease is likely cause. This will be his third exacerbation in the last 3 months. 2. History of tobacco use. 3. History of seizure. 4. Depression/anxiety disorder. 5. Hypertension. RECOMMENDATION AND DISCUSSION: It is unclear why patient is now starting to develop frequent exacerbation of COPD. He may have a component of allergies with symptoms starting around springtime this year. Other considerations include reflux disease and possible sinus disease. It is also possible that his lung disease is progressively worsening. Would recommend broad-spectrum antibiotics, corticosteroids and bronchodilators. DVT and GI prophylaxis recommended. The patient will benefit from outpatient pulmonary followup given his frequent exacerbations over the last 3 months. Thank you for this consultation. ��������������������������������������������� <ELECTRONICALLY SIGNED> ���������������������������������������� By: Bry Salas MD ��������������������������������������������� 09/28/18 1721 1756 1434 Bry Salas MD /nt
== END 2018-09-28 16:09 | disposition home or self-care (01) | DRG 193 ==
LOC: ER 14:06 → 4E 15:12 → EROBS 15:12 → 4E 15:48 → ENTRNSPT 09-27 12:16 → EDTRNSPTSTS 09-27 12:23 → SICU 09-27 12:37 → CMPTRNSPT 09-27 14:45 → SICU 09-28 16:09
PROVIDERS: Emergency Medicine; Internal Medicine Pulmonary Disease; ADMIT Family Medicine
DX: J18.9 Pneumonia, unspecified organism (principal); J96.91 Respiratory failure, unspecified with hypoxia; J44.1 Chronic obstructive pulmonary disease with (acute) exacerbation; J44.0 Chronic obstructive pulmonary disease with (acute) lower respiratory infection; F32.9 Major depressive disorder, single episode, unspecified; F41.9 Anxiety disorder, unspecified; Z96.642 Presence of left artificial hip joint; Z96.651 Presence of right artificial knee joint; G40.909 Epilepsy, unspecified, not intractable, without status epilepticus; J30.9 Allergic rhinitis, unspecified; E78.00 Pure hypercholesterolemia, unspecified; I10 Essential (primary) hypertension; Z90.49 Acquired absence of other specified parts of digestive tract; Z98.42 Cataract extraction status, left eye; Z98.41 Cataract extraction status, right eye; Z87.891 Personal history of nicotine dependence; Z79.899 Other long term (current) drug therapy
CPT/HCPCS: 10084; 15002

== ENCOUNTER 2021-06-23 20:34 | Inpatient (IN) | payer OTHER ==
[~2021-06-23] VITALS: Ht 175.3 cm; Wt 85.7 kg
[~2021-06-23 20:34] MED LIST changes: +ADULT LOW DOSE81 MG PO; +DOXYCYCLINE 10100 MG PO; +STIOLTO RESPIMAT4 GM INH
[2021-06-23 20:37] VITALS: BP 145/58
[2021-06-23 21:10] LABS: HEMATOCRIT 42.4 % (42.0-52.0); MCH 32.1 pg (26.0-34.0); MCHC 33.1 g/dL (28.0-37.0); MCV 96.9 fL (80.0-100.0); RBC 4.38 mil/uL (4.50-6.00); WBC 10.1 thou/uL (4.0-11.0)
[2021-06-23 21:24] LABS: CALCIUM 9.2 mg/dL (8.5-10.1); CREATININE 1.3 mg/dL (0.7-1.3); POTASSIUM 3.9 mmol/L (3.5-5.1)
[2021-06-23 21:35] LABS: ALBUMIN 3.5 g/dL (3.4-5.0); TOTAL BILIRUBIN 0.6 mg/dL (0.2-1.0); TOTAL PROTEIN 8.2 g/dL (6.4-8.2)
--- NOTE | 2021-06-24 00:43 | NUR ---
ATTEMPTED TO CALL REPORT AT THIS TIME. INPATIENT NURSE WILL CALL ME WHEN SHE IS AVAILABLE.
--- NOTE | 2021-06-24 01:00 | NUR ---
Pt. admitted to the unit from the emergency room accompanied by staff. He is alert and oriented. Admission assessment and history is completed. Pt. offers no c/o pain or discomfort.
[2021-06-24 01:16] VITALS: BP 117/63; BP 129/72
[2021-06-24] MEDS ORDERED: FLOMAX0.4 MG PO (01:37)
[2021-06-24 04:55] VITALS: BP 104/57
[2021-06-24 07:30] VITALS: BP 92/52
--- NOTE | 2021-06-24 08:02 | EKG ---
[address] [address] ELECTROCARDIOGRAM REPORT Name: SHABBIRGLENNCATHYDARLENELISALEY Room #: 206-P ADM IN M.R.#: [id number] Admission: 06/23/21 Attend Phys: David Baker MD Discharge: Date of : 36 Report #: [id number] [facility] ED Test Date: 2021-06-23 Test Time: 21:02:20 Pat Name: LISA OSWALD Department: Room: 206 Gender: M Education Diagnostician: JOSEPH : 1940 Requested By: Katy Quinones Order Number: [id number] MD: Brent Solano Measurements Intervals [place] Rate: 87 P: 77 PA: 149 QRS: 51 QRSD: 97 T: 10 QT: 372 QTc: 448 Interpretive Statements Sinus rhythm Compared to ECG 09/26/2018 14:52:13 Ventricular premature complex(es) no longer present Atrial abnormality no longer present Electronically Signed On 06-24-2021 8:02:22 [employer]UM[employer] by Brent Solano [email or web address] <ELECTRONICALLY SIGNED> By: Brent Solano MD, [facility] 06/24/21801 2102 01 Brent Solano MD, FACC /EPI
[2021-06-24 11:30] VITALS: BP 108/70
--- NOTE | 2021-06-24 15:00 | NUR ---
PATIENT ADMITTED FOR PE/COPD. CHART REVEIWED AND DISCUSSED WITH CARE TEAM. CM MET WITH PT THIS DAY. CM ROLE INTRODUCED. PATIENT REPORTS HE IS INDEPENDENT WITH ADLS AND MOBILITY. HE REPORTS HE IS STILL DRIVING. HE REPORTS NO CONCERNS GOING HOME. HE REPORTS HE DOES NOT USE OXYGEN AT HOME. IT IS ANTICIPATED HE WILL BE HERE THROUGH THE WEEKEND. SHOULD HE DISCHARGE AND NEED HH, CM SPOKE ABOUT HH SERVICES. HE HAS NO CHOICE AND AGREEABLE TO [facility] HH. NO FURTHER CM NEEDS AT THIS TIME.
[2021-06-24 16:00] VITALS: BP 101/56
[2021-06-24 20:15] VITALS: BP 107/68
[2021-06-25 00:20] VITALS: BP 106/69
--- NOTE | 2021-06-25 02:30 | NUR ---
RESTING QUIETLY WITHOUT COMPLAINTS. UP AD JETT WITH CANE AND STEADY GAIT. WORKING ON GOALS AND PLAN OF CARE FOR NOC. CONTINUE TO ELLYN MENON.
[2021-06-25 03:43] LABS: CALCIUM 8.6 mg/dL (8.5-10.1); CREATININE 0.9 mg/dL (0.7-1.3)
[2021-06-25 04:45] VITALS: BP 101/45
[2021-06-25 08:00] VITALS: BP 105/60
--- NOTE | 2021-06-25 10:06 | 2DMMODE ---
[facility] [place] [address] 2 D/M-MODE ECHOCARDIOGRAM Name: LISA OSWALD Room #: 206-P ADM IN M.R.#: [id number] Admission: 06/23/21 Attend Phys: David Baker MD Discharge: Date of : 36 Report #: [id number] THIS REPORT FOR: cc: Puma Dodge MD, Neal A. MD Santiago, Patrick MD [facility] ~ APPROVED REPORT Study performed: 06/25/2021 08:48:48 EXAM: Comprehensive 2D, Doppler, and color-flow Echocardiogram Patient Location: Bedside Room #: 206 Status: on-call BSA: 2.03 HR: 72 bpm BP: 101/45 mmHg Rhythm: NSR Other Information Study Quality: Adequate Indications Short of breath, Large right saddle PE. Hx: COPD, CABG. 2D Dimensions IVSd: 9.96 (7-11mm) LVOT Diam: 19.96 (18-24mm) LVDd: 41.65 mm PWd: 9.35 (7-11mm) LVDs: 26.68 (25-40mm) Left Atrium: 40.10 (27-40mm) Volumes Left Atrial Volume (Systole) Single Plane 4CH: 87.13 mL Single Plane 2CH: 67.31 mL LA ESV Index: 41.00 mL/m2 Aortic Valve AoV Peak Ruben.: 1.67 m/s AO Peak Gr.: 11.99 mmHg LVOT Max P.16 mmHg LVOT Max V: 0.89 m/s JACKSON Vmax: 1.66 cm2 [facility] [address] [address] 2 D/M-MODE ECHOCARDIOGRAM Name: DAREKLISA KAREN Room #: 206-P ADM IN .R.#: [id number] Admission: 06/23/21 Attend Phys: Guerrero Omlos Discharge: Date of : 36 Report #: [id number] Mitral Valve E/A Ratio: 1.1 MV Decel. Time: 181.21 ms MV E Max Ruben.: 0.91 m/s MV A Ruben.: 0.83 m/s MV PHT: 52.55 ms IVRT: 89.97 ms Tricuspid Valve TR Peak Ruben.: 3.59 m/s RAP Estimate: 5.00 mmHg TR Peak Gr.: 52.00 mmHg PA Pressure: 57.00 mmHg Left Ventricle The left ventricle is normal size. Regional wall motion abnormalities are noted. There is normal left ventricular wall thickness. Left ventricular systolic function is normal. LVEF is 55-60%. Moderate diastolic dysfunction is present (pseudonormal filling). Right Ventricle The right ventricle is normal size. Right ventricle is mildly hypokinetic. Atria Left atrium is mild to moderately dilated. Right atrium is mildly dilated. Aortic Valve Aortic valve is calcified. No aortic regurgitation is present. There is no aortic valvular stenosis. Mitral Valve Moderate mitral annular calcification. Moderate mitral regurgitation. No evidence of mitral valve stenosis. Tricuspid Valve The tricuspid valve is normal in structure. Moderate tricuspid regurgitation. Estimated PAP is 57mmHg. Pulmonic Valve Pulmonic valve is not well visualized. Great Vessels Ascending aorta is not well visualized. IVC is normal in size and collapses >50% with inspiration. [facility] [address] [place] [address] 2 D/M-MODE ECHOCARDIOGRAM Name: LISA OSWALD Room #: 206-P ADM IN M.R.#: [id number] Admission: 06/23/21 Attend Phys: Guerrero Olmos Discharge: Date of : 36 Report #: [id number] Pericardium There is no pericardial effusion. <Conclusion> Normal left ventricular size/wall thickness Ejection fraction 60% Normal right ventricular size/mild hypokinesis Left atrium moderately dilated, right atrium mildly dilated Aortic valve mildly calcified/ no stenosis Moderate mitral valve insufficiency Moderate tricuspid valve insufficiency Pulmonary systolic pressure estimated 57 mmHg No pericardial effusion Normal aortic root size <ELECTRONICALLY SIGNED> By: Brent Solano MD, [facility] 06/25/21 1006 1006 Brent Solano MD, FACC /INF
[2021-06-25 12:00] VITALS: BP 99/46
[2021-06-25 15:58] VITALS: BP 131/69
[2021-06-25 19:20] VITALS: BP 108/62
[2021-06-26 04:00] VITALS: BP 116/49
--- NOTE | 2021-06-26 04:11 | NUR ---
SLEPT MOST OF SHIFT. UP TO BATHROOM WITH STEADY GAIT WITH CANE. HOPES TO DISCHARGE TODAY. PROGRESSING SLOWLY TOWARDS GOALS. CONTINUE TO ASSES.
[2021-06-26 07:54] VITALS: BP 117/63
[2021-06-26 11:01] LABS: HEMATOCRIT 39.7 % (42.0-52.0); HEMOGLOBIN 13.2 gm/dL (14.0-18.0); MCHC 33.4 g/dL (28.0-37.0); MCV 95.9 fL (80.0-100.0); RBC 4.14 mil/uL (4.50-6.00); RDW 13.2 % (10.5-14.5); WBC 6.4 thou/uL (4.0-11.0)
[2021-06-26 11:15] LABS: CALCIUM 8.7 mg/dL (8.5-10.1); MAGNESIUM 2.4 mg/dL (1.8-2.4); POTASSIUM 3.7 mmol/L (3.5-5.1)
[2021-06-26 12:00] VITALS: BP 108/60
[2021-06-26 16:51] VITALS: BP 108/52
[2021-06-26 20:01] VITALS: BP 120/53
[2021-06-27 01:09] VITALS: BP 128/72
[2021-06-27 04:03] VITALS: BP 115/66
--- NOTE | 2021-06-27 07:30 | NUR ---
Assumed pt care at 1900. Pt is alert and oriented. No sign of distress noted, pt is stable. Assessment completed and documented. Pt ambualates independently. Scheduled meds administered to pt. No acute event during the night. Continue to monitor. No further needs at this time
[2021-06-27 09:45] VITALS: BP 123/61
--- NOTE | 2021-06-27 10:01 | NUR ---
ANTICIPATE PT WILL DC THIS DAY. NO INTERVENTIONS FROM INDICATED.
[2021-06-27 10:38] VITALS: BP 123/61
[2021-06-27 10:45] LABS: HEMOGLOBIN 14.6 gm/dL (14.0-18.0); MCH 32.1 pg (26.0-34.0); MCHC 33.9 g/dL (28.0-37.0); MCV 94.8 fL (80.0-100.0); RBC 4.54 mil/uL (4.50-6.00); RDW 13.6 % (10.5-14.5); WBC 7.4 thou/uL (4.0-11.0)
[2021-06-27 11:07] LABS: CALCIUM 9.2 mg/dL (8.5-10.1); MAGNESIUM 2.4 mg/dL (1.8-2.4); POTASSIUM 4.1 mmol/L (3.5-5.1)
[2021-06-27] MEDS ORDERED: ELIQUIS5 MG PO (11:14)
[2021-06-27 12:25] VITALS: BP 116/67
--- NOTE | 2021-06-27 12:53 | NUR ---
PT MEDICALLY STABLE TO DC THIS DAY. CM MET WITH PT TO DISCUSS [facility] COST. PER [facility] PT COST $78/MONTH AFTER INSURANCE. CM GAVE PT [employer]IS $10 COPAY CARD AND INSTRUCTIONS ON HOW TO USE. PT VOICED UNDERSTANDING. PT WILL DC WITH NO FURTHER NEEDS OR CM INTERVENTIONS.
== END 2021-06-27 14:34 | disposition home health service (06) | DRG 175 ==
LOC: ER 20:34 → 2N 23:39 → EROBS 23:39 → 2N 06-24 01:04
PROVIDERS: Internal Medicine; Nurse Practitioner Family; Student in an Organized Health Care Education/Training Program; ADMIT Internal Medicine; ATTEND Internal Medicine
DX: I26.92 Saddle embolus of pulmonary artery without acute cor pulmonale (principal); J96.01 Acute respiratory failure with hypoxia; I82.431 Acute embolism and thrombosis of right popliteal vein; E87.1 Hypo-osmolality and hyponatremia; I48.20 Chronic atrial fibrillation, unspecified; F32.9 Major depressive disorder, single episode, unspecified; Z96.642 Presence of left artificial hip joint; Z96.651 Presence of right artificial knee joint; E78.00 Pure hypercholesterolemia, unspecified; E78.5 Hyperlipidemia, unspecified; Z60.2 Problems related to living alone; R53.81 Other malaise; G40.909 Epilepsy, unspecified, not intractable, without status epilepticus; N40.0 Benign prostatic hyperplasia without lower urinary tract symptoms; F41.1 Generalized anxiety disorder; I95.9 Hypotension, unspecified; J43.9 Emphysema, unspecified; K44.9 Diaphragmatic hernia without obstruction or gangrene; I10 Essential (primary) hypertension; Z20.822 Contact with and (suspected) exposure to COVID-19; Z98.41 Cataract extraction status, right eye; Z98.42 Cataract extraction status, left eye; Z87.891 Personal history of nicotine dependence; Z83.3 Family history of diabetes mellitus; Z81.8 Family history of other mental and behavioral disorders; Z79.82 Long term (current) use of aspirin; Z79.899 Other long term (current) drug therapy
CPT/HCPCS: 10081